=== PATIENT | female | born 1955 | race African-American/Black ===

== ENCOUNTER 2023-07-18 20:35 | Inpatient (IN) | payer OTHER, MEDICARE ==
[~2023-07-18] VITALS: Ht 165.1 cm; Wt 48.1 kg
[2023-07-18 20:45] VITALS: RESP 28
[2023-07-18] MEDS: KETAMINE HCL 50 MG/ML 10ML IV ONE (21:00)
[2023-07-18] MEDS: LIDOCAINE HCL 1% 20ML VIAL (Pyxis) INJ INFIL NR (21:00)
[2023-07-18] MEDS: POVIDONE-IODINE 10% TOPICAL SOLN 240ML TOP NR (22:06)
[2023-07-18 22:16] LABS: BG BASE EXCESS -9.4 mmol/L (-2.0-2.0); BG CARBOXYHEMOGLOBIN 1.7 % (0.5-1.5); BG DEOXYHEMOGLOBIN 0.1 % (0.0-5.0); BG FRACTION INSPIRED OXYGEN 100; BG HCO3 ACT 17.3 mmol/L (22.0-26.0); BG METHEMOGLOBIN 0.5 % (0.0-1.5); BG OXYGEN SATURATION 99.9 % (92.0-98.5); BG OXYHEMOGLOBIN 97.7 % (94.0-97.0); BG PCO2 40.5 mmHg (35.0-45.0); BG PH 7.249 (7.350-7.450); BG PO2 351.7 mmHg (75.0-100.0); BG SAMPLE SITE RIGHT RADIAL; BG TOTAL HEMOGLOBIN 13.8 g/dL (12.0-18.0); BG VENT MODE MASK - NRB
[2023-07-19] VITALS (14 sets, daily range): BP systolic 109–137; BP diastolic 78–91; PULSE 109–136; RESP 16–24; TEMP 97–97.8; O2SAT 97–99
[2023-07-19 00:10] LABS: CHLORIDE 108 mEq/L (98-107); HEMATOCRIT. 36.8 % (36.0-48.0); HEMOGLOBIN. 12.3 g/dL (12.0-16.0); MEAN CORPUSCULAR HEMOGLOBIN 34.1 pg (28.0-32.0); MEAN CORPUSCULAR HGB CONC 33.4 g/dL (31.0-37.0); MEAN CORPUSCULAR VOLUME 102.2 fL (81.0-99.0); MEAN PLATELET VOLUME 8.1 fl (7.4-10.4); PLATELET 207 x1000/uL (130-400); POTASSIUM 3.6 mEq/L (3.5-5.1); RED CELL DISTRIBUTION WIDTH 14.4 % (11.6-14.6); SODIUM 141 mEq/L (136-145); WHITE BLOOD COUNT 11.3 x1000/uL (4.5-11.0)
[2023-07-19 00:11] LABS: CARBON DIOXIDE 23 mEq/L (21-32)
[2023-07-19 00:12] LABS: CALCIUM 8.8 mg/dL (8.7-10.4)
[2023-07-19 00:13] LABS: DIFFERENTIAL COMMENT 1
[2023-07-19 00:16] LABS: CREATININE 0.9 mg/dL (0.6-1.0)
[2023-07-19 00:17] LABS: GLUCOSE 102 mg/dL (70-105); UREA NITROGEN BLOOD 6 mg/dL (9-23)
[2023-07-19 00:18] LABS: ALANINE AMINOTRANSFERASE 23 IU/L (10-49); ASPARTATE AMINOTRANSFERASE 66 IU/L (<34)
[2023-07-19 00:19] LABS: BILIRUBIN DIRECT 0.3 mg/dL (<=3.0); BILIRUBIN TOTAL 0.8 mg/dL (0.1-1.0); PROTEIN TOTAL 6.6 g/dL (6.0-8.3)
[2023-07-19 00:22] LABS: ATYPICAL LYMPHOCYTES 1; NUCLEATED RED BLOOD CELLS 1 /100 WBC; PLATELET ESTIMATE NORMAL; TARGET CELLS 1+
[2023-07-19 00:23] LABS: OVALOCYTES 1+
[2023-07-19 00:34] LABS: TROPONIN I HIGH SENSITIVITY 439 ng/L (3.0-34)
[2023-07-19] MEDS: ACETYLCYSTEINE 200MG/ML 20% VIAL 10ML INH SCH (01:12)
[2023-07-19] MEDS ORDERED: MAGNESIUM/ALUMINUM HYDROXIDE/SIMETHICONE 30ML UDC PO PRN (01:15)
[2023-07-19] MEDS ORDERED: GUAIFENESIN 200MG/10ML SUGAR FREE UDC PO PRN (01:15)
[2023-07-19] MEDS ORDERED: IPRATROPIUM/ALBUTEROL 0.5-3(2.5)MG/3ML NEB HHN PRN ×2 (01:15→02:00)
[2023-07-19] MEDS ORDERED: DOCUSATE SODIUM 100MG CAPSULE PO PRN (01:15)
[2023-07-19] MEDS: KETOROLAC 30MG/ML VIAL IV NR (01:45)
[2023-07-19 03:04] LABS: LACTIC ACID 2.9 mmol/L (0.4-2.0); PHOSPHORUS 4.3 mg/dL (2.5-4.9)
[2023-07-19 04:10] LABS: FOLIC ACID (FOLATE) SERUM 4.44 ng/mL (>5.38); VITAMIN B12 SERUM 576 pg/mL (211-911)
[2023-07-19] MEDS: MORPHINE SULFATE 2 MG/ML CPJ (NOT FOR IM USE) IV NR (04:15)
[2023-07-19] MEDS: AZITHROMYCIN 500MG/250ML 500 ML IV SCH (05:33)
[2023-07-19] MEDS ORDERED: CEFEPIME 1GM/50ML 50 ML IV SCH (06:00)
[2023-07-19] MEDS: MAGNESIUM 2 G PREMIX 50 ML IV NR (06:54)
[2023-07-19] MEDS: CEFEPIME 2GM/100ML 100 ML IV SCH (08:00)
[2023-07-19] MEDS: INSULIN LISPRO 100 UNITS/ML SUBCUT SCH (08:00)
[2023-07-19] MEDS: BLOOD SUGAR DIAGNOSTIC STRIP TEST SCH (08:25)
[2023-07-19] MEDS: BUDESONIDE 0.5MG/2ML NEB HHN SCH (09:10)
[2023-07-19] MEDS: IPRATROPIUM/ALBUTEROL 0.5-3(2.5)MG/3ML NEB HHN SCH (09:10)
[2023-07-19 09:39] LABS: CREATINE KINASE MB FRACTION 16.1 ng/mL (0.5-3.6)
[2023-07-19 09:42] LABS: T4 FREE 1.17 ng/dL (0.89-1.76); THYROID STIMULATING HORMONE 1.12 uIU/mL (0.55-4.78)
[2023-07-19] MEDS: PANTOPRAZOLE SODIUM 40 MG/VIAL IV SCH (10:26)
[2023-07-19 12:09] LABS: HEPATITIS B SURFACE ANTIGEN NEGATIVE (Negative)
[2023-07-19] MEDS: KETOROLAC 15MG/ML VIAL IV PRN (12:12)
[2023-07-19 12:31] LABS: HEPATITIS C AB NON REACTIVE (Neg) (Negative)
[2023-07-19 12:42] LABS: CLARITY URINE CLEAR (CLEAR); COLOR URINE DARK YELLOW (YELLOW); GLUCOSE URINE NEGATIVE (NEGATIVE); KETONES URINE TRACE (NEGATIVE); LEUKOCYTE ESTERASE URINE NEGATIVE (NEGATIVE); NITRITE URINE NEGATIVE (NEGATIVE); OCCULT BLOOD URINE NEGATIVE (NEGATIVE); PH URINE 5.5 (4.5-8.0); PROTEIN URINE TRACE (NEGATIVE); SPECIFIC GRAVITY URINE 1.022 (1.005-1.030); UROBILINOGEN URINE 0.2 E.U./dL (0.2-1.0)
[2023-07-19 13:03] LABS: *AMPHETAMINES SCREEN URINE NEGATIVE (NEGATIVE); *BARBITURATES SCREEN URINE NEGATIVE (NEGATIVE); *BENZODIAZEPINES SCREEN URINE NEGATIVE (NEGATIVE); *COCAINE SCREEN URINE NEGATIVE (NEGATIVE); CANNABINOID URINE SCREEN PRESUMPTIVE POSITIVE (NEGATIVE); ECSTASY MDMA SCREEN URINE NEGATIVE (NEGATIVE); METHADONE URINE SCREEN NEGATIVE (NEGATIVE); OPIATES URINE SCREEN PRESUMPTIVE POSITIVE (NEGATIVE); PHENCYCLIDINE URINE SCREEN NEGATIVE (NEGATIVE)
[2023-07-19 13:33] LABS: BACTERIA URINE 3+; SQUAMOUS EPITHELIAL CELL URINE 1+ /lpf (RARE/1+)
[2023-07-19 13:34] LABS: RBC URINE NONE SEEN /hpf (0-2); WBC URINE 0-2 /hpf (0-2)
[2023-07-19 17:02] LABS: CREATINE KINASE MB FRACTION 18.6 ng/mL (0.5-3.6)
[2023-07-20] VITALS (17 sets, daily range): BP systolic 114–146; BP diastolic 80–105; PULSE 104–133; RESP 15–32; TEMP 97.4–98.2; O2SAT 97
[2023-07-20] MEDS: AZITHROMYCIN 500MG/250ML 500 ML IV SCH (06:35)
[2023-07-20 07:48] LABS: BASOPHILS % 0.5 % (0.0-2.0); EOSINOPHILS % 0.1 % (0.0-5.0); HEMATOCRIT. 34.5 % (36.0-48.0); HEMOGLOBIN. 11.8 g/dL (12.0-16.0); LYMPHOCYTES % 9.5 % (20.0-50.0); MEAN CORPUSCULAR HEMOGLOBIN 33.8 pg (28.0-32.0); MEAN CORPUSCULAR HGB CONC 34.1 g/dL (31.0-37.0); MEAN CORPUSCULAR VOLUME 99.1 fL (81.0-99.0); MEAN PLATELET VOLUME 8.4 fl (7.4-10.4); MONOCYTES % 9.7 % (2.0-8.0); NEUTROPHILS % 80.2 % (40.0-76.0); PLATELET 194 x1000/uL (130-400); RED BLOOD CELL COUNT 3.48 mill/uL (4.2-5.4); RED CELL DISTRIBUTION WIDTH 14.3 % (11.6-14.6); WHITE BLOOD COUNT 7.9 x1000/uL (4.5-11.0)
[2023-07-20 08:06] LABS: CHLORIDE 105 mEq/L (98-107); POTASSIUM 3.7 mEq/L (3.5-5.1); SODIUM 136 mEq/L (136-145)
[2023-07-20 08:07] LABS: CARBON DIOXIDE 24 mEq/L (21-32)
[2023-07-20 08:11] LABS: CREATINE KINASE MB FRACTION 8.7 ng/mL (0.5-3.6)
[2023-07-20 08:12] LABS: CREATININE 0.9 mg/dL (0.6-1.0)
[2023-07-20 08:13] LABS: GLUCOSE 103 mg/dL (70-105); UREA NITROGEN BLOOD 9 mg/dL (9-23)
[2023-07-20 08:15] LABS: CREATINE KINASE 220 IU/L (34-145)
[2023-07-20 08:53] LABS: TROPONIN I HIGH SENSITIVITY 1772 ng/L (3.0-34)
[2023-07-20] MEDS: ASPIRIN 81MG TABLET PO SCH (09:00)
[2023-07-20 09:51] LABS: TROPONIN I HIGH SENSITIVITY 1536 ng/L (3.0-34)
[2023-07-20] MEDS: ENOXAPARIN 60MG/0.6ML SYR SUBCUT SCH (10:00)
[2023-07-20 12:41] LABS: T4 FREE 1.07 ng/dL (0.89-1.76); TROPONIN I HIGH SENSITIVITY 1407 ng/L (3.0-34)
[2023-07-21] VITALS (16 sets, daily range): BP systolic 102–130; BP diastolic 84–101; PULSE 107–127; RESP 13–25; TEMP 96.7–98.3; O2SAT 96–98
[2023-07-21 07:32] LABS: BASOPHILS % 0.7 % (0.0-2.0); EOSINOPHILS % 0.2 % (0.0-5.0); HEMATOCRIT. 33.6 % (36.0-48.0); HEMOGLOBIN. 11.6 g/dL (12.0-16.0); LYMPHOCYTES % 10.6 % (20.0-50.0); MEAN CORPUSCULAR HEMOGLOBIN 34.4 pg (28.0-32.0); MEAN CORPUSCULAR HGB CONC 34.4 g/dL (31.0-37.0); MEAN CORPUSCULAR VOLUME 99.9 fL (81.0-99.0); MEAN PLATELET VOLUME 8.6 fl (7.4-10.4); MONOCYTES % 11.6 % (2.0-8.0); NEUTROPHILS % 76.9 % (40.0-76.0); PLATELET 181 x1000/uL (130-400); RED BLOOD CELL COUNT 3.37 mill/uL (4.2-5.4); RED CELL DISTRIBUTION WIDTH 14.2 % (11.6-14.6); WHITE BLOOD COUNT 7.3 x1000/uL (4.5-11.0)
[2023-07-21 07:44] LABS: CARBON DIOXIDE 25 mEq/L (21-32); CHLORIDE 102 mEq/L (98-107); POTASSIUM 3.2 mEq/L (3.5-5.1); SODIUM 135 mEq/L (136-145)
[2023-07-21 07:45] LABS: CALCIUM 8.8 mg/dL (8.7-10.4)
[2023-07-21 07:49] LABS: CREATININE 0.8 mg/dL (0.6-1.0)
[2023-07-21 07:50] LABS: GLUCOSE 139 mg/dL (70-105); UREA NITROGEN BLOOD 8 mg/dL (9-23)
[2023-07-21 07:52] LABS: PHOSPHORUS 3.2 mg/dL (2.5-4.9)
[2023-07-21] MEDS: IPRATROPIUM/ALBUTEROL 0.5-3(2.5)MG/3ML NEB HHN ONE (10:50)
[2023-07-21] MEDS: POTASSIUM CHLORIDE 20MEQ TABLET SR PO NR (11:31)
[2023-07-21] MEDS: MAGNESIUM 4 G PREMIX 100 ML IV NR (14:08)
[2023-07-21] MEDS: ACETYLCYSTEINE 200MG/ML 20% VIAL 4ML INH SCH (16:20)
[2023-07-21] MEDS: ENOXAPARIN 60MG/0.6ML SYR SUBCUT SCH (20:44)
[2023-07-21] MEDS: ACETAMINOPHEN 325MG TABLET PO PRN (22:02)
[2023-07-22] VITALS (15 sets, daily range): BP systolic 106–140; BP diastolic 80–105; PULSE 99–127; RESP 17–31; TEMP 98.2–98.8; O2SAT 95–99
[2023-07-22 07:25] LABS: BASOPHILS % 0.9 % (0.0-2.0); EOSINOPHILS % 1.9 % (0.0-5.0); HEMATOCRIT. 35.6 % (36.0-48.0); HEMOGLOBIN. 12.1 g/dL (12.0-16.0); LYMPHOCYTES % 10.4 % (20.0-50.0); MEAN CORPUSCULAR HEMOGLOBIN 33.9 pg (28.0-32.0); MEAN CORPUSCULAR HGB CONC 33.9 g/dL (31.0-37.0); MEAN PLATELET VOLUME 8.6 fl (7.4-10.4); MONOCYTES % 13.4 % (2.0-8.0); NEUTROPHILS % 73.4 % (40.0-76.0); PLATELET 213 x1000/uL (130-400); RED BLOOD CELL COUNT 3.56 mill/uL (4.2-5.4); RED CELL DISTRIBUTION WIDTH 14.1 % (11.6-14.6); WHITE BLOOD COUNT 8.5 x1000/uL (4.5-11.0)
[2023-07-22 07:45] LABS: CHLORIDE 102 mEq/L (98-107); POTASSIUM 4.1 mEq/L (3.5-5.1); SODIUM 134 mEq/L (136-145)
[2023-07-22 07:46] LABS: CALCIUM 9.6 mg/dL (8.7-10.4); CARBON DIOXIDE 25 mEq/L (21-32)
[2023-07-22 07:51] LABS: CREATININE 0.8 mg/dL (0.6-1.0); GLUCOSE 84 mg/dL (70-105); UREA NITROGEN BLOOD 9 mg/dL (9-23)
[2023-07-23] VITALS (14 sets, daily range): BP systolic 107–130; BP diastolic 67–95; PULSE 92–105; RESP 16–26; TEMP 97.2–98.6; O2SAT 98–99
[2023-07-23] MEDS: FAMOTIDINE 20MG TABLET PO SCH (08:41)
[2023-07-23] MEDS ORDERED: LIDOCAINE HCL 1% 20ML VIAL (Pyxis) INJ ONE (11:07)
[2023-07-23] MEDS ORDERED: IODIXANOL 320MG/ML 100 ML BOTTLE IV ONE (11:07)
[2023-07-23] MEDS ORDERED: HEPARIN 1000 UNITS/ML 10ML ONE (11:07)
[2023-07-23] MEDS ORDERED: MIDAZOLAM HCL 2 MG/2 ML VIAL ONE (11:34)
[2023-07-23] MEDS ORDERED: FENTANYL CITRATE/PF 50MCG/ML 2ML VIAL ONE (11:35)
[2023-07-23] MEDS ORDERED: ATROPINE SULFATE 1MG/10ML SYR IV PRN (13:00)
[2023-07-23] MEDS: CLONIDINE 0.1MG TABLET PO PRN (13:26)
[2023-07-24] VITALS (13 sets, daily range): BP systolic 90–141; BP diastolic 47–118; PULSE 91–121; RESP 15–23; TEMP 98.6–99.5; O2SAT 96
[2023-07-24] MEDS: DEXTROSE 50% WATER 50ML SYRINGE IV PRN (09:11)
[2023-07-24] MEDS: ONDANSETRON HCL 4MG/2ML INJ IV PRN (11:26)
[2023-07-24] MEDS: CLOPIDOGREL 75MG TABLET PO SCH (13:59)
[2023-07-25] VITALS (8 sets, daily range): BP systolic 62–144; BP diastolic 33–95; PULSE 85–107; RESP 16–21; TEMP 97.6–98.9
[2023-07-25] MEDS ORDERED: NALOXONE HCL 0.4MG/ML VIAL IV PRN (16:15)
[2023-07-25] MEDS: HYDROCODONE/ACETAMINOPHEN 5/325MG TABLET PO PRN (16:52)
[2023-07-25 18:25] LABS: BASOPHILS % 0.4 % (0.0-2.0); CHLORIDE 98 mEq/L (98-107); EOSINOPHILS % 2.9 % (0.0-5.0); HEMATOCRIT. 35.1 % (36.0-48.0); HEMOGLOBIN. 11.9 g/dL (12.0-16.0); LYMPHOCYTES % 7.8 % (20.0-50.0); MEAN CORPUSCULAR HEMOGLOBIN 33.5 pg (28.0-32.0); MEAN CORPUSCULAR HGB CONC 33.9 g/dL (31.0-37.0); MEAN CORPUSCULAR VOLUME 98.8 fL (81.0-99.0); MEAN PLATELET VOLUME 8.1 fl (7.4-10.4); NEUTROPHILS % 74.9 % (40.0-76.0); PLATELET 309 x1000/uL (130-400); POTASSIUM 4.6 mEq/L (3.5-5.1); RED BLOOD CELL COUNT 3.56 mill/uL (4.2-5.4); RED CELL DISTRIBUTION WIDTH 14.1 % (11.6-14.6); SODIUM 129 mEq/L (136-145); WHITE BLOOD COUNT 8.8 x1000/uL (4.5-11.0)
[2023-07-25 18:26] LABS: CALCIUM 9.4 mg/dL (8.7-10.4); CARBON DIOXIDE 24 mEq/L (21-32)
[2023-07-25 18:31] LABS: CREATININE 0.8 mg/dL (0.6-1.0); GLUCOSE 85 mg/dL (70-105)
[2023-07-25 18:32] LABS: UREA NITROGEN BLOOD 15 mg/dL (9-23)
[2023-07-25 18:34] LABS: PHOSPHORUS 3.4 mg/dL (2.5-4.9)
[2023-07-26] VITALS (8 sets, daily range): BP systolic 95–132; BP diastolic 53–82; PULSE 77–101; RESP 18–21; TEMP 97.2–98.4
[2023-07-26] MEDS: MAGNESIUM 2 G PREMIX 50 ML IV NR (01:21)
[2023-07-26 06:50] LABS: BASOPHILS % 0.8 % (0.0-2.0); CARBON DIOXIDE 24 mEq/L (21-32); CHLORIDE 97 mEq/L (98-107); EOSINOPHILS % 6.5 % (0.0-5.0); HEMATOCRIT. 33.8 % (36.0-48.0); HEMOGLOBIN. 11.4 g/dL (12.0-16.0); LYMPHOCYTES % 13.1 % (20.0-50.0); MEAN CORPUSCULAR HEMOGLOBIN 33.7 pg (28.0-32.0); MEAN CORPUSCULAR HGB CONC 33.9 g/dL (31.0-37.0); MEAN CORPUSCULAR VOLUME 99.7 fL (81.0-99.0); MEAN PLATELET VOLUME 7.6 fl (7.4-10.4); MONOCYTES % 14.3 % (2.0-8.0); NEUTROPHILS % 65.3 % (40.0-76.0); PLATELET 331 x1000/uL (130-400); RED BLOOD CELL COUNT 3.39 mill/uL (4.2-5.4); RED CELL DISTRIBUTION WIDTH 13.6 % (11.6-14.6); SODIUM 130 mEq/L (136-145)
[2023-07-26 06:51] LABS: CALCIUM 9.1 mg/dL (8.7-10.4)
[2023-07-26 06:56] LABS: CREATININE 0.7 mg/dL (0.6-1.0); GLUCOSE 74 mg/dL (70-105); UREA NITROGEN BLOOD 13 mg/dL (9-23)
[2023-07-26 06:58] LABS: PHOSPHORUS 2.8 mg/dL (2.5-4.9)
[2023-07-26] MEDS ORDERED: NITROGLYCERIN 0.4MG TABLET SL SL PRN (10:00)
[2023-07-26] MEDS: TRAMADOL HCL/ACETAMINOPHEN 37.5/325MG TABLET PO PRN (14:10)
[2023-07-27 04:00] VITALS: BP 92/65; PULSE 73; RESP 11; TEMP 98.1
[2023-07-27 05:56] LABS: CHLORIDE 97 mEq/L (98-107); SODIUM 130 mEq/L (136-145)
[2023-07-27 05:57] LABS: CARBON DIOXIDE 24 mEq/L (21-32)
[2023-07-27 06:00] LABS: HEMATOCRIT. 33.5 % (36.0-48.0); HEMOGLOBIN. 11.5 g/dL (12.0-16.0); MEAN CORPUSCULAR HGB CONC 34.2 g/dL (31.0-37.0); MEAN CORPUSCULAR VOLUME 99.2 fL (81.0-99.0); MEAN PLATELET VOLUME 7.6 fl (7.4-10.4); PLATELET 357 x1000/uL (130-400); RED BLOOD CELL COUNT 3.38 mill/uL (4.2-5.4); RED CELL DISTRIBUTION WIDTH 14.1 % (11.6-14.6)
[2023-07-27 06:02] LABS: CREATININE 0.7 mg/dL (0.6-1.0); GLUCOSE 64 mg/dL (70-105); UREA NITROGEN BLOOD 13 mg/dL (9-23)
[2023-07-27 07:37] LABS: DIFFERENTIAL COMMENT 1
[2023-07-27 08:00] VITALS: BP 133/82; PULSE 76; RESP 16; TEMP 98.2
[2023-07-27 12:00] VITALS: BP 114/70; PULSE 99; RESP 16; TEMP 96.9
[2023-07-27 14:26] LABS: PLATELET ESTIMATE NORMAL
[2023-07-27 16:00] VITALS: BP 125/75; PULSE 79; RESP 15; TEMP 98
[2023-07-27 19:00] VITALS: BP 135/90; PULSE 100; PULSE 97; RESP 15; TEMP 98.5; O2SAT 95
[2023-07-27] MEDS ORDERED: ENOXAPARIN 40MG/0.4ML SYR SUBCUT SCH (20:00)
== END 2023-07-27 21:11 | disposition short-term general hospital (02) | DRG 280 ==
LOC: ER 20:35 → EDBEDREQ 22:15 → EDBEDREQTM 22:15 → 5EST 07-19 04:32
PROVIDERS: ADMIT Internal Medicine; ATTEND Internal Medicine
PROC: 0W9930Z Drainage of Right Pleural Cavity with Drainage Device, Percutaneous Approach (ICD-10-PCS; principal; 2023-07-18)
PROC: 5A09357 Assistance with Respiratory Ventilation, Less than 24 Consecutive Hours, Continuous Positive Airway Pressure (ICD-10-PCS; 2023-07-18)
PROC: 4A023N7 Measurement of Cardiac Sampling and Pressure, Left Heart, Percutaneous Approach (ICD-10-PCS; 2023-07-23)
PROC: B2111ZZ Fluoroscopy of Multiple Coronary Arteries using Low Osmolar Contrast (ICD-10-PCS; 2023-07-23)
PROC: B2151ZZ Fluoroscopy of Left Heart using Low Osmolar Contrast (ICD-10-PCS; 2023-07-23)
PROC: 5A0935A Assistance with Respiratory Ventilation, Less than 24 Consecutive Hours, High Flow/Velocity Cannula (ICD-10-PCS; 2023-07-23)
DX: I21.4 Non-ST elevation (NSTEMI) myocardial infarction (principal); A41.9 Sepsis, unspecified organism; J15.1 Pneumonia due to Pseudomonas; J96.01 Acute respiratory failure with hypoxia; J93.9 Pneumothorax, unspecified; I10 Essential (primary) hypertension; J44.9 Chronic obstructive pulmonary disease, unspecified; E11.9 Type 2 diabetes mellitus without complications; E78.00 Pure hypercholesterolemia, unspecified; Z20.822 Contact with and (suspected) exposure to COVID-19; I25.10 Atherosclerotic heart disease of native coronary artery without angina pectoris; R05.3 Chronic cough; E83.42 Hypomagnesemia; E87.6 Hypokalemia; I25.5 Ischemic cardiomyopathy; F12.10 Cannabis abuse, uncomplicated; F17.210 Nicotine dependence, cigarettes, uncomplicated; Z85.3 Personal history of malignant neoplasm of breast; Z90.11 Acquired absence of right breast and nipple; Z92.3 Personal history of irradiation
CPT/HCPCS: 36415; 36600; 71045; 71250; 80048; 80061; 80076; 80305; 81003; 82375; 82550; 82553; 82607; 82746; 82805; 82962; 83036; 83605; 83735; 83880; 84100; 84145; 84439; 84443; 84484; 85025; 85379; 86705; 87070; 87077; 87106; 87186; 87340; 87426; 87804; 93005; 93306; 93458; 93970; 94640; 94660; 97110; 97116; 97162; 97166; 97530; 97535; 99291; C1769; C1887; C1893; C9113; J0456; J0692; J1644; J1650; J1815; J1885; J2250; J2270; J2405; J3010; J3475; J3490; J7608; J7626; Q9967